=== PATIENT | female | born 1950 | race Caucasian/White ===

== ENCOUNTER → 2016-10-21 | Outpatient (REF) ==
[~2016-10-21] MED LIST: FAMVIR250 MG PO; FOLIC ACID 11 MG/TA1 PO; METHOTREXATE50/2 SQ; MULTI VITAMINS1 TAB PO; PROGESTERONE PO; SYNTHROID0.075 MG/T; TRI EST PO; VITAMIN D32000 IU PO
== END ==
LOC: WSOH 15:30
DX: Z02.89 Encounter for other administrative examinations (principal)

== ENCOUNTER → 2016-12-31 | Outpatient (REF) | LOC: WSOH 17:30 | DX: Z02.89 Encounter for other administrative examinations (principal) ==

== ENCOUNTER → 2017-02-10 | Outpatient (CLI) | payer OTHER | LOC: MC.RAD 16:54 | DX: Z12.31 Encounter for screening mammogram for malignant neoplasm of breast (principal) ==

== ENCOUNTER → 2018-02-13 | Outpatient (CLI) | payer OTHER | LOC: MC.RAD 14:46 | DX: Z12.31 Encounter for screening mammogram for malignant neoplasm of breast (principal); Z98.82 Breast implant status ==

== ENCOUNTER → 2018-11-22 | Outpatient (CLI) | payer BC | LOC: COL.PUL 07:46 | DX: R93.89 Abnormal findings on diagnostic imaging of other specified body structures (principal); R06.02 Shortness of breath ==

== ENCOUNTER → 2019-03-15 | Outpatient (CLI) | payer BC | LOC: MC.RAD 08:45 | DX: Z12.31 Encounter for screening mammogram for malignant neoplasm of breast (principal); Z98.82 Breast implant status ==

== ENCOUNTER → 2020-01-25 | Outpatient (CLI) | payer BC | LOC: MC.RAD 09:00 | DX: N64.4 Mastodynia (principal) ==